=== PATIENT | female | born 1950 | race Caucasian/White ===

== ENCOUNTER → 2017-01-13 | Day surgery (SDC) | payer OTHER ==
[~2017-01-13] MED LIST: BUPIVACAINE HCL PF 0.25% 30 ML VIAL ONE; CARV3.125 PO; CLON0.5T PO; LACO50 PO; LACTATED RINGER'S 1000 ML INJ 1,000 ML ONE; LEVO100T4 PO; LORT5TAB PO; MIDAZOLAM HCL 2 MG/2 ML VIAL ONE; ONDANSETRON HCL 4 MG/2 ML VIAL IV PUSH ONE; PHEN100 PO; PROPOFOL 100 MG/10 ML INJ IV ONE; SIMV20 PO; TEGR400T PO; ceFAZolin INJ 1,000 MG VIAL ONE
--- NOTE | 2017-01-14 10:11 | MP ---
cc: CHASE PAYTON M.D. DATE OF SURGERY: January 13, 2017. PREOPERATIVE DIAGNOSIS Left wrist De Quervain's tenosynovitis. POSTOPERATIVE DIAGNOSIS Left wrist De Quervain's tenosynovitis. SURGEON Dr. Chase Payton. VIDEO PRODUCER JAVI Prasad VIDEO PRODUCER JAVI Sanchez The surgical procedure was assisted by my Advanced Registered Nurse Practitioner. My PERFECT BINDER SETTER presence was necessary throughout this case for the manipulation and positioning of the surgical extremity. My PERFECT BINDER SETTER was assisting me throughout the duration of this procedure. The skill set of an Advance Registered Nurse Practitioner was medically necessary to complete this procedure. During the surgical case, the surgical elastic knitter was working at the back table and the Advance Registered Nurse Practitioner was directly assisting me. PROCEDURE Left wrist excision of first dorsal extensor sheath with removal of bone spur. ANESTHESIA General. TOURNIQUET TIME 8 minutes. PROCEDURE The patient was brought back to operative theater. She received intravenous Ancef. The left upper extremity was prepped and draped in usual sterile fashion after general anesthesia had been administered. The arm was exsanguinated. Tourniquet was raised. We gave infiltration of 0.25% Marcaine without epinephrine over the first dorsal extensor compartment. We made incision through the skin, we protected the superficial radial nerve, identified the dorsal aspect of the extensor compartment, incised through it. We found that the extensor compartment was septated and we incised through both septations to release both underlying tendons of the first dorsal extensor compartment. After we did this both tendons glided very nicely. There was still a small bone spur which we resected. We did this by accessing it on the volar aspect of the julius region so as not to create a osseous bed underneath the tendon and there was still nice soft tissue that allowed the tendon to glide, overlying the area where we resected the bone spur with using the rongeur. The tourniquet was released. Hemostasis was achieved. Skin was closed with 2-0 Vicryl followed by 3-0 nylon and the arm was dressed. Postop plan is early range of motion. MD OFE Lucero/VICTORIANO /2:49 PM /9:46 AM
== END | disposition home or self-care (01) ==
LOC: ESDC 12:50
PROVIDERS: ATTEND Orthopaedic Surgery
DX: M65.4 Radial styloid tenosynovitis [de Quervain] (principal)
CPT/HCPCS: 01810; 25000; J0690; J2250; J2405; J3010; J7120